=== PATIENT | female | born 1955 | race Two or more races ===

== ENCOUNTER → 2018-08-31 | Day surgery (SDC) | payer BC ==
[2018-08-31] VITALS (10 sets, daily range): BP systolic 115–153; BP diastolic 68–100
[~2018-08-31] VITALS: Ht 152.4 cm; Wt 17.2 kg
[~2018-08-31] MED LIST: ARMOUR THYROID30 MG ORAL; BSS 15ml BTL ONE; BSS 500ml btl ONE; Bupivacaine 0.75% 30ml vial INJ ONE; Cyclopentolate 1% Opth Sol 2ml RIGHT EYE ONE; Dexamethasone 4mg/ml vial ONE; EPINEPHrine 1mg/1ml Amp ONE; Flurbiprofen 0.03% Opth Sol 2.5ml RIGHT EYE ONE; Kenalog-10 5ml Inj ONE; Kenalog-40 1ml Vial ONE; LR 1000ml 1,000 ML IVLG SCH; LR 1000ml ONE; Lidocaine 1% MPF 10mg/ml 5ml ONE; Lidocaine 2% MPF 5ml Vial INJ ONE; Maxitrol Opth Oint 3.5gm ONE; Metoclopramide 10mg/2ml Inj ONE; Midazolam 2mg/2ml Inj ONE; NS Irrig 1000ml ONE; Phenylephrine 2.5% Op 2ml Soln RIGHT EYE ONE; Povidone-Iodine 5% opth solution ONE; Pred Forte 1% Opth Susp 1ml ONE; Pred Forte 1% Opth Susp 1ml RIGHT EYE ONE; Propofol 200mg/20ml IV ONE; Sodium Hyaluronate 10 mg/ml 0.85ml ONE; Sterile Water Irrig 1000ml IRRIG ONE; Tetracaine 0.5% Opth 4ml Soln ONE; Vigamox Opth Soln 3ml RIGHT EYE ONE
--- NOTE | 2018-08-31 12:20 | NUR ---
ED Nurse Note: PT walked in to Ed with for right eye cataract surgery. surgery scheduled at 1300. pt denies any c/o pain. AAO x4. respirations even and non-labored noted. skin warm to touch. no open wound noted. Surgeon at the bed side. will wait for the further order.
--- NOTE | 2018-08-31 12:32 | Emergency Room Report ---
History of Present Illness General Chief Complaint: General Complaint Source: Patient Present Illness HPI 63-year-old female patient presents the ER complaining of right eye vision problems. Reports was seen by information technology specialist earlier today and was told that she has right eye retinal detachment, states that she should come to the ER for further evaluation and possible need for surgery. Reports that she has been expressing floaters in her right eye for the past 2 years, states that vision became worse in the past 2 weeks. Reports that she has a "curtain coming down" over the top half of her field of vision in her right eye. Denies other aggravating or relieving factors. Denies fever, chest pain, shortness of breath. Patient states her information technology specialist is Dr. Moss. Allergies: Coded Allergies: No Known Allergies (Unverified , 08/31/18) Patient History Past Medical History: see triage record Reviewed Nursing Documentation: PMH: Agreed; PSxH: Agreed Nursing Documentation-PMH Past Medical History: No History, Except For Review of Systems All Other Systems: negative except mentioned in HPI Physical Exam Vital Signs Date Time Temp Pulse Resp B/P (MAP) Pulse Ox O2 Delivery O2 Flow Rate FiO2 08/31/18 12:14 98.1 82 17 153/100 98 Room Air Sp02 EP Interpretation: reviewed, normal General Appearance: well appearing, no apparent distress, alert, GCS 15, non- toxic Head: normocephalic, atraumatic Eyes: bilateral eye normal inspection, bilateral eye PERRL, bilateral eye EOMI ENT: hearing grossly normal, normal pharynx, no angioedema, normal voice, uvula midline, moist mucus membranes Neck: full range of motion Respiratory: lungs clear, normal breath sounds, no rhonchi, no respiratory distress, no accessory muscle use, no wheezing, speaking full sentences Cardiovascular #1: regular rate, rhythm, no edema Musculoskeletal: back normal, digits/nails normal, gait/station normal, normal range of motion, non-tender Neurologic: alert, oriented x3, responsive, motor strength/tone normal, sensory intact Psychiatric: mood/affect normal Skin: no rash Medical Decision Making PA Attestation Dr. Irizarry is my supervising Physician whom patient management has been discussed with. Diagnostic Impression: Primary Impression: Retinal detachment ER Course Pt. presents to the ED c/o right eye retinal detachment. Ddx considered but are not limited to retinal detachment, conjunctivitis, headache. Vital signs: are WNL, pt. is afebrile ER COURSE: Ordered basic labs. Ordered EKG. CBC unremarkable, no elevation WBCs CMP show elevation in LFTs or electrolyte abnormalities Coag studies within normal limits Blood type B positive EKG shows no ST elevation or atrial fibrillation, unremarkable EKG, reviewed by Dr. Irizarry. Per Dr. Moss ophthalmology recommendation, ordered eyedrops for patient. Patient to be admitted for right eye retinal detachment. Discussed care with Dr. Irizarry. Patient be seen by Dr. Moss ophthalmology. - Please note that this Emergency Department Report was dictated using [employer] chopper technology software, occasionally this can lead to erroneous entry secondary to interpretation by the dictation equipment. Labs Test 08/31/18 12:50 White Blood Count 4.1 K/UL (4.8-10.8) Red Blood Count 4.74 M/UL (4.20-5.40) Hemoglobin 14.5 G/DL (12.0-16.0) Hematocrit 43.5 % (37.0-47.0) Mean Corpuscular Volume 92 FL (80-99) Mean Corpuscular Hemoglobin 30.6 PG (27.0-31.0) Mean Corpuscular Hemoglobin Concent 33.3 G/DL (32.0-36.0) Red Cell Distribution Width 11.7 % (11.6-14.8) Platelet Count 187 K/UL (150-450) Mean Platelet Volume 7.3 FL (6.5-10.1) Neutrophils (%) (Auto) 62.5 % (45.0-75.0) Lymphocytes (%) (Auto) 27.4 % (20.0-45.0) Monocytes (%) (Auto) 8.7 % (1.0-10.0) Eosinophils (%) (Auto) 0.3 % (0.0-3.0) Basophils (%) (Auto) 1.1 % (0.0-2.0) Prothrombin Time 11.5 SEC (9.30-11.50) Prothromb Time International Ratio 1.1 (0.9-1.1) Activated Partial Thromboplast Time 30 SEC (23-33) Sodium Level 141 MMOL/L (136-145) Potassium Level 3.3 MMOL/L (3.5-5.1) Chloride Level 102 MMOL/L (98-107) Carbon Dioxide Level 28 MMOL/L (21-32) Anion Gap 11 mmol/L (5-15) Blood Urea Nitrogen 10 mg/dL (7-18) Creatinine 0.9 MG/DL (0.55-1.30) Estimat Glomerular Filtration Rate > 60 mL/min (>60) Glucose Level 81 MG/DL (74-106) Calcium Level 10.0 MG/DL (8.5-10.1) Total Bilirubin 0.6 MG/DL (0.2-1.0) Aspartate Amino Transf (AST/SGOT) 20 U/L (15-37) Alanine Aminotransferase (ALT/SGPT) 22 U/L (12-78) Alkaline Phosphatase 54 U/L (46-116) Total Protein 8.6 G/DL (6.4-8.2) Albumin 4.4 G/DL (3.4-5.0) Globulin 4.2 g/dL Albumin/Globulin Ratio 1.0 (1.0-2.7) Lipase 293 U/L (73-393) EKG Diagnostic Results Rate: normal Rhythm: NSR ST Segments: no acute changes ASA given to the pt in ED: No PA Scribe Text Joe Lora PA-C Rhythm Strip Diag. Results EP Interpretation: yes Rate: 77 Rhythm: NSR, no PVC's, no ectopy PA Scribe Text Joe Lora PA-C Last Vital Signs Date Time Temp Pulse Resp B/P (MAP) Pulse Ox O2 Delivery O2 Flow Rate FiO2 08/31/18 12:14 98.1 82 17 153/100 98 Room Air Disposition: ADMITTED INPATIENT Condition: Serious Rusty Lora Aug 31, 2018 12:32
[2018-08-31 13:04] LABS: BASOPHILS % (AUTO) 1.1 % (0.0-2.0); EOSINOPHILS % (AUTO) 0.3 % (0.0-3.0); HEMATOCRIT 43.5 % (37.0-47.0); HEMOGLOBIN 14.5 G/DL (12.0-16.0); LYMPHOCYTES % (AUTO) 27.4 % (20.0-45.0); MEAN CORPUSCULAR VOLUME 92 FL (80-99); MONOCYTES % (AUTO) 8.7 % (1.0-10.0); NEUTROPHILS % (AUTO) 62.5 % (45.0-75.0); PLATELET COUNT 187 K/UL (150-450); RED BLOOD COUNT 4.74 M/UL (4.20-5.40); RED CELL DISTRIBUTION WIDTH 11.7 % (11.6-14.8); WHITE BLOOD COUNT 4.1 K/UL (4.8-10.8)
[2018-08-31 13:10] LABS: ANION GAP 11 mmol/L (5-15); BLOOD UREA NITROGEN 10 mg/dL (7-18); CARBON DIOXIDE 28 MMOL/L (21-32); CHLORIDE 102 MMOL/L (98-107); CREATININE 0.9 MG/DL (0.55-1.30); INR 1.1 (0.9-1.1); POTASSIUM 3.3 MMOL/L (3.5-5.1); SODIUM 141 MMOL/L (136-145)
[2018-08-31 13:15] LABS: ALANINE AMINOTRANSFERASE 22 U/L (12-78); ALBUMIN 4.4 G/DL (3.4-5.0); ALKALINE PHOSPHATASE 54 U/L (46-116); ASPARTATE AMINO TRANSFERASE 20 U/L (15-37); BILIRUBIN,TOTAL 0.6 MG/DL (0.2-1.0)
--- NOTE | 2018-08-31 13:16 | NUR ---
ED Nurse Note: surgery is for right eye retinal detachment.
--- NOTE | 2018-08-31 13:28 | Anethesia Preoperative Eval ---
Anesthesia Pre-op PMH/ROS General ASA Score: ASA 2 Mallampati Score Class I : Soft palate, uvula, fauces, pillars visible Class II: Soft palate, uvula, fauces visible Class III: Soft palate, base of uvula visible Class IV: Only hard plate visible Mallampati Classification: Class II Anesthesia History: none Allergies: Coded Allergies: No Known Allergies (Unverified , 08/31/18) Patient NPO?: Yes Anesthesia Pre-op Phys. Exam Physician Exam Last Vital Signs Date Time Temp Pulse Resp B/P (MAP) Pulse Ox O2 Delivery O2 Flow Rate FiO2 08/31/18 12:20 98.1 82 17 153/100 98 Room Air Constitutional: NAD Neurologic: CN 2-12 intact Airway Exam Mallampati Score: Class II ROM: full Teeth: intact Dentures: no upper, no lower Anesthesia Pre-op A/P Labs Hematology Test 08/31/18 12:50 White Blood Count 4.1 K/UL (4.8-10.8) L Red Blood Count 4.74 M/UL (4.20-5.40) Hemoglobin 14.5 G/DL (12.0-16.0) Hematocrit 43.5 % (37.0-47.0) Mean Corpuscular Volume 92 FL (80-99) Mean Corpuscular Hemoglobin 30.6 PG (27.0-31.0) Mean Corpuscular Hemoglobin Concent 33.3 G/DL (32.0-36.0) Red Cell Distribution Width 11.7 % (11.6-14.8) Platelet Count 187 K/UL (150-450) Mean Platelet Volume 7.3 FL (6.5-10.1) Neutrophils (%) (Auto) 62.5 % (45.0-75.0) Lymphocytes (%) (Auto) 27.4 % (20.0-45.0) Monocytes (%) (Auto) 8.7 % (1.0-10.0) Eosinophils (%) (Auto) 0.3 % (0.0-3.0) Basophils (%) (Auto) 1.1 % (0.0-2.0) Coagulation Test 08/31/18 12:50 Prothrombin Time 11.5 SEC (9.30-11.50) Prothromb Time International Ratio 1.1 (0.9-1.1) Activated Partial Thromboplast Time 30 SEC (23-33) Chemistry Test 08/31/18 12:50 Sodium Level 141 MMOL/L (136-145) Potassium Level 3.3 MMOL/L (3.5-5.1) L Chloride Level 102 MMOL/L (98-107) Carbon Dioxide Level 28 MMOL/L (21-32) Anion Gap 11 mmol/L (5-15) Blood Urea Nitrogen 10 mg/dL (7-18) Creatinine 0.9 MG/DL (0.55-1.30) Estimat Glomerular Filtration Rate > 60 mL/min (>60) Glucose Level 81 MG/DL (74-106) Calcium Level 10.0 MG/DL (8.5-10.1) Total Bilirubin 0.6 MG/DL (0.2-1.0) Aspartate Amino Transf (AST/SGOT) 20 U/L (15-37) Alanine Aminotransferase (ALT/SGPT) 22 U/L (12-78) Alkaline Phosphatase 54 U/L (46-116) Total Protein 8.6 G/DL (6.4-8.2) H Albumin 4.4 G/DL (3.4-5.0) Globulin 4.2 g/dL Albumin/Globulin Ratio 1.0 (1.0-2.7) Lipase 293 U/L (73-393) Walt Vail MD Aug 31, 2018 13:28
--- NOTE | 2018-08-31 13:57 | Pre-Procedure Note/Attestation ---
Pre-Procedure Note/Attestation Complete Prior to Procedure Planned Procedure: right Procedure Narrative: PPV, cryo, endolaser, gas-fluid exchange Right eye Indications for Procedure Pre-Operative Diagnosis: Retinal detachment Right eye, macula-on Attestation I attest that I discussed the nature of the procedure; its benefits; risks and complications; and alternatives (and the risks and benefits of such alternatives ), prior to the procedure, with the patient (or the patient's legal independent sales representative). I attest that, if there was a reasonable possibility of needing a blood transfusion, the patient (or the patient's legal independent sales representative) was given the [facility] standardized written summary, pursuant to the Isra Avila Blood Safety Act ([place] Health and Safety Code # 1645, as amended). I attest that I re-evaluated the patient just prior to the surgery and that there has been no change in the patient's H&P, except as documented below: Thang Moss MD Aug 31, 2018 13:57
--- NOTE | 2018-08-31 15:08 | Brief Operative Note ---
Immediate Post Operative Note Operative Note Chief Complaint: shadow in vision Right eye Pre-op Diagnosis: Retinal detachment Right eye, macula-on Procedure: PPV, kenalog, cryo, gas fluid 25% OD Post-op Diagnosis: same as pre-op Surgeon: benny Anesthesiologist: leonel Anesthesia: MAC Specimen: none Complications: none Condition: stable Fluids: per anesthesia Estimated Blood Loss: none Drains: none Implant(s) used?: No Thang Moss MD Aug 31, 2018 15:08
--- NOTE | 2018-08-31 15:15 | Immediate Post-Op Evaluation ---
Immediate Post-Op Evalulation Immediate Post-Op Evalulation Nausea: No Vomiting: No Patient Status: awake, reacts, patent Hydration Status: adequate Given Within 1 Hr of Incision: No Walt Vail MD Aug 31, 2018 15:15
--- NOTE | 2018-08-31 17:45 | Pre-op HX & Phy Repo 2 SIG ---
DATE OF ADMISSION: 08/31/2018 DATE OF SURGERY: 08/31/2018 PREOPERATIVE DIAGNOSIS: Retinal detachment, right eye. BRIEF NOTE: This is a first [facility] admission for the patient who is a very nice 63-year-old lady, who complained of floaters 2 years ago and worsening of the floaters and the beginnings of a shadow in the vision of the right eye about a week ago. On examination, she was found to have a retinal detachment with a single horseshoe tear above. PAST MEDICAL HISTORY: Unremarkable according to the patient. SOCIAL HISTORY: She does not smoke or drink. ALLERGIES: She has no known allergies. PHYSICAL EXAMINATION: Best vision was 20/20- in the right eye 20/20 in the left with inferior field loss on the right. The pupillary and anterior segment exams are clear. Fundus on the right eye showed a fairly bullous superior retinal detachment extending just to the arcades with a large horseshoe tear at the 12:30 position. No other tears were seen. The left fundus was benign. ASSESSMENT: Retinal detachment, right eye. PLAN: The plan is to perform a pars plana vitrectomy with endo drainage, cryopexy, and gas-fluid exchange. The risks and benefits of surgery gone over the patient and her family included potential for infection, hemorrhage, glaucoma, and remote possibility of loss of the eye. The risk of anesthesia was discussed. The patient understands and consents to the surgery, which will be performed this afternoon. Thang Moss M.D. DR: ARUN JOB#: [id number] CC:
--- NOTE | 2018-08-31 18:15 | Pre-op HX & Phy Repo 2 SIG ---
DATE OF ADMISSION: 08/31/2018 DATE OF SURGERY: August 31, 2018 REASON FOR EVALUATION: I was asked by Dr. Thang Moss this 63-year-old female who going for emergency surgery on the right eye. The patient has retinal detachment, right eye. Please see the ophthalmology History and Physical by Dr. Thang Moss. The patient was evaluated in the emergency room at [facility]. The patient denies history of hypertension. No history of stroke. No myocardial infarction, chest pain, or palpitations. Denies history of diabetes mellitus. The patient has history of hypothyroidism. Denies history of GI bleeding or hepatitis. Denied history of renal failure. No history of anemia. PAST SURGICAL HISTORY: . FAMILY HISTORY: Mother from heart attack. Father lung cancer . ALLERGIES: Not known. PRESENT MEDICATIONS: Include thyroid supplement, multivitamins, vitamin D, vitamin B6, B12, omega-3, Coenzyme Q10. HABITS: Denies history of smoke or alcohol habits. No street drugs. PHYSICAL EXAMINATION: GENERAL: Petite female in her 60s. Weight 100 pound and 5 feet tall. VITAL SIGNS: Blood pressure at first 159/100, second measured 164/85. Temperature 98.1, pulse 82, respirations 17, O2 saturation 93% on room air. SKIN: Clear and cold. No cyanosis or fingernail changes. No rashes. No open wounds. LYMPH NODES: Not enlarged. HEENT: Head normocephalic, atraumatic. Ears, clear. Eyes, full description per Dr. Thang Moss. Mouth, clear and moist. No dentures. NECK: No jugular distention. Carotids artery +2. No palpable mass. Trachea midline. LUNGS: Clear. No rales or rhonchi. HEART: Sinus. Regular. No ectopy. No murmur. ABDOMEN: Soft. No rebound. No palpable mass. No liver or spleen enlargement. EXTREMITIES: No edema. No varicose vein. No deformity. No calf tenderness. GENITOURINARY: No dysuria. No CVA tenderness. NERVOUS SYSTEM: No asymmetry. CVA nontender. LABORATORY AND DIAGNOSTIC DATA: ECG normal sinus rhythm, normal ECG. Laboratory work obtained and result is pending. The patient is NPO since 6 a.m., drink only a glass of tea. IMPRESSION: 1. Retinal detachment, right eye. 2. Hypertension, transitional. 3. Hypothyroidism. PLAN: 1. Pars plana vitrectomy. 2. Gas fluid exchange, 23G right eye per Dr. Thang Moss. CONCLUSION: The patient is a 63-year-old female. EKG normal limits. Blood pressure is slightly elevated. The patient has no treatment for hypertension, might be transitional. The patient did not eat or drink from 6 a.m. The patient's condition optimized for surgery. Thank you very much, Dr. Moss, for privilege to participate in presurgical care of this interesting patient. Gilberto Hood M.D. DR: Surya JOB#: [id number] CC:
--- NOTE | 2018-09-04 14:29 | Cardiology Report ---
APPROVED REPORT EKG Measurement Heart [id number] CO [id number] Normal sinus rhythm Normal ECG
--- NOTE | 2018-09-07 11:45 | Operative Note - Dictated ---
DATE OF OPERATION: 08/31/2018 PREOPERATIVE DIAGNOSIS: Retinal detachment, right eye. POSTOPERATIVE DIAGNOSIS: Retinal detachment, right eye. PROCEDURE: Pars plana vitrectomy, Kenalog injection, peripheral cryo treatment, and gas-fluid exchange, right eye. SURGEON: Thang Moss M.D. CAR MOVER: None. ANESTHESIA: Local with sedation. ANESTHESIOLOGIST: Dr. Vail. JUSTIFICATION FOR SURGERY: This 63-year-old lady noted shadow in the vision of the right eye and was found to have a macula on retinal detachment, on that side. She was admitted for surgery. BRIEF NOTE: The patient was brought to the operating room and placed on the OR table in the supine position. After a time-out was performed and agreed upon by the staff and initial monitoring secured by Dr. Vail, retrobulbar and Van Lint blocks were given to the right eye in the standard way. When the blocks taken effect, she was prepped and draped in normal manner. A lid speculum inserted into the right eye. Using a 23-gauge trocar system, cannulas were placed in all except infranasal quadrant. Infusion was secured inferotemporally. Peripheral examination of the retina revealed a superior retinal detachment with the macula still on. There was a horseshoe tear at the 12 o'clock position with a smaller tear adjacent to it. No other retinal breaks were seen. An attempted cryopexy was able to treat the anterior edge of the break, but the posterior could not be reached without cutdown of conjunctiva. It was elected to do this during the vitrectomy. The vitrectomy was then begun posterior to the lens taking care to avoid contact. A central core vitrectomy was done followed by peripheral vitrectomy leaving a small vitreous skirt. Shaving of the vitreous from the flap and surrounding edge of the horseshoe tear was accomplished with the high cut rate. Gentle suction through the break with the vitreous cutter allowed the retina to flatten by about 70%. At this juncture, the cryoprobe was then used on the softened eye using the wide field viewing system to gently place cryo around the posterior margins of the break. Scleral depression revealed other breaks, tears or detachments. At this juncture, an air-fluid exchange was performed to roughly 80% leaving posterior fluid to limit the development of wet folds. Once this was accomplished, a gas-gas exchange was performed with a 24% mixture of SF6, again to an 80% fill. The cannulas were removed from the eye and the inferotemporal sclerotomy was closed with 8-0 Vicryl. The others appeared to be self-sealing and were left. Subconjunctival Decadron and gentamicin were then injected and Maxitrol and atropine ointments were instilled. The eye was patched and shielded and the patient taken to recovery in excellent condition to be placed in the face-down position for one hour and subsequently to be placed at a 45-degree angle to promote of fluid. Thang Moss M.D. DR: ALESSANDRA JOB#: [id number] CC: Thang Moss M.D.; Fax#: [phone]
== END | disposition home or self-care (01) ==
LOC: EMR 12:47 → EDBEDREQ 13:17 → SUR 13:21 → EMR 13:21
DX: H33.001 Unspecified retinal detachment with retinal break, right eye (principal); E03.9 Hypothyroidism, unspecified; I10 Essential (primary) hypertension
CPT/HCPCS: 36415; 67108; 80053; 83690; 85025; 85610; 85730; 86850; 86900; 86901; 93005; J0171; J1100; J2250; J2405; J2704; J2765; J3301; J3470; J3490; 94003; 94150